=== PATIENT | female | born 1980 | race African-American/Black ===

== ENCOUNTER 2020-09-19 06:03 | Inpatient (IN) ==
[2020-09-13 11:58] LABS: Bilirubin,Urine Negative (Negative); Blood, Urine Negative (Negative); Glucose,Urine (UA) Negative (Negative); Ketones,Urine Negative (Negative); Nitrite,Urine Negative (Negative); Protein,Urine Negative; Squamous Epithelial Cell,Urine Occasional /HPF (0-10); Urine Appearance CLEAR (Clear); Urine Color Yellow (Yellow); Urine Specific Gravity 1.021 (1.001-1.035); Urine Urobilinogen < 2.0 EU/DL (0.2-1.0)
[2020-09-13 11:59] LABS: Basophils # 0.1 10*3/uL (0.0-0.2); Basophils % 1.2 % (0.0-0.8); Eosinophils # 0.2 10*3/uL (0.0-0.87); Eosinophils % 2.6 % (0.00-10.9); Hematocrit 29.5 VOL% (35.7-47.0); Hemoglobin 8.9 GM/DL (12.0-16.0); Immature Granulocytes % 0.5 %; Immature Granulocytes Absolute 0.03 #; Lymphocytes # 2.3 10*3/uL (1.4-4.0); Lymphocytes % 34.2 % (21.3-54.2); Mean Corpuscular HGB Conc 30.2 GM/DL (32-36); Mean Corpuscular Volume 73.6 FL (87-102); Mean Platelet Volume 10.6 FL (9.6-12.0); Monocytes % 5.8 % (1.7-12.7); Neutrophils % 55.7 % (38.7-73.9); Platelet Count 407 T/CUMM (130-400); Red Blood Count 4.01 MC/CUMM (3.8-5.5); Red Cell Distribution Width 18.3 % (9.3-17.3); White Blood Count 6.6 T/CUMM (4-12)
[2020-09-13 12:07] LABS: PT Patient Result 10.3 SECS (9.8-11.9); Partial Thromboplastin Time 25.2 SECS (23.9-33.8)
[2020-09-13 12:25] LABS: Calcium 9.1 MG/DL (8.5-10.1); Osmolality,Calculated 280.3 MOS/KG (273-304)
[2020-09-19] MEDS ORDERED: INDIGO CARMINE 5 ML AMP ONE (06:19)
[2020-09-19] MEDS ORDERED: FAMOTIDINE 20 MG TABLET PO ONE (06:20)
[2020-09-19] MEDS ORDERED: DIAZEPAM 5 MG TABLET PO ONE (06:20)
[2020-09-19] MEDS ORDERED: BUPIVACAINE MPF 0.5% /EPI 30 ML VIAL ONE (06:24)
[2020-09-19] MEDS ORDERED: DEXAMETHASONE 4 MG/1 ML VIAL ONE (06:24)
[2020-09-19] MEDS ORDERED: LACTATED RINGERS 1,000 ML IV SCH ×2 (06:30→09:30)
[2020-09-19] MEDS ORDERED: ceFAZolin 1,000 MG in SYRINGE 1 EACH IV ONE (06:30)
[2020-09-19] MEDS ORDERED: BENZOCAINE/MENTHOL LOZENGE 18/BOX PO PRN (09:02)
[2020-09-19] MEDS ORDERED: MAGNESIUM HYDROXIDE SUSP 30 ML UDCUP PO PRN (09:02)
[2020-09-19] MEDS ORDERED: IBUPROFEN 800 MG TABLET PO PRN (09:02)
[2020-09-19] MEDS ORDERED: ONDANSETRON 4 MG/2 ML VIAL IV PRN ×2 (09:02→09:27)
[2020-09-19] MEDS ORDERED: ACETAMINOPHEN 325 MG TABLET PO PRN (09:02)
[2020-09-19] MEDS ORDERED: BISACODYL 10 MG SUPP RECTAL PRN (09:02)
[2020-09-19] MEDS ORDERED: LIDOCAINE 2% 5 ML VIAL ONE (09:16)
[2020-09-19] MEDS ORDERED: fentaNYL 100 MCG/2 ML VIAL ONE (09:16)
[2020-09-19] MEDS ORDERED: MIDAZOLAM 2 MG/2 ML VIAL ONE (09:16)
[2020-09-19] MEDS ORDERED: propofoL 200 MG/20 ML VIAL IV ONE (09:16)
[2020-09-19] MEDS ORDERED: ROCURONIUM 100 MG/10 ML VIAL IV ONE (09:17)
[2020-09-19] MEDS ORDERED: GLYCOPYRROLATE 0.4 MG/2 ML VIAL ONE (09:17)
[2020-09-19] MEDS ORDERED: ONDANSETRON 4 MG/2 ML VIAL ONE (09:17)
[2020-09-19] MEDS ORDERED: NEOSTIGMINE 10 MG/10 ML VIAL ONE (09:17)
[2020-09-19] MEDS ORDERED: ePHEDrine 50 MG/ML VIAL ONE (09:17)
[2020-09-19] MEDS ORDERED: LACTATED RINGERS 1,000 ML IV ONE (09:17)
[2020-09-19] MEDS ORDERED: HYDROmorphone 2 MG/1 ML VIAL IV PRN ×2 (09:27→17:45)
[2020-09-19 09:33] LABS: Bacteria,Urine Occasional /HPF (Few); Bilirubin,Urine Negative (Negative); Blood, Urine Negative (Negative); Glucose,Urine (UA) Negative (Negative); Ketones,Urine Negative (Negative); Mucus,Urine Occasional /LPF (Occasional); Nitrite,Urine Negative (Negative); Protein,Urine Negative; RBC,Urine <1 /HPF (0-4); Squamous Epithelial Cell,Urine Occasional /HPF (0-10); Urine Appearance CLEAR (Clear); Urine Color Yellow (Yellow); Urine Specific Gravity 1.018 (1.001-1.035); Urine Urobilinogen < 2.0 EU/DL (0.2-1.0); WBC,Urine <1 /HPF (0-6)
[2020-09-19] MEDS ORDERED: MEPERIDINE 25 MG/1 ML VIAL IV PRN (09:40)
[2020-09-19] MEDS ORDERED: MEPERIDINE 25 MG/1 ML VIAL ONE (09:41)
[2020-09-19] MEDS ORDERED: INFLUENZA VIRUS VACCINE 0.5 ML SYRINGE IM ONE (10:30)
[2020-09-19] MEDS: KETOROLAC 30 MG/1 ML VIAL IV PRN ×3 (10:55→23:25)
[2020-09-19] MEDS ORDERED: HYDROmorphone 2 MG/1 ML VIAL IV ONE (12:08)
[2020-09-19] MEDS: ceFAZolin 1,000 MG in SYRINGE 1 EACH IV SCH ×2 (15:06→23:29)
[2020-09-20] MEDS: oxyCODONE/ACETAMINOPHEN 5-325 MG TABLET PO PRN ×2 (05:25→11:16)
[2020-09-20] MEDS: KETOROLAC 30 MG/1 ML VIAL IV PRN (05:26)
[2020-09-20 06:20] LABS: Basophils % 0.2 % (0.0-0.8); Eosinophils % 0.1 % (0.00-10.9); Hemoglobin 7.9 GM/DL (12.0-16.0); Immature Granulocytes % 0.5 %; Immature Granulocytes Absolute 0.06 #; Lymphocytes # 1.9 10*3/uL (1.4-4.0); Lymphocytes % 14.9 % (21.3-54.2); Mean Corpuscular HGB Conc 31.6 GM/DL (32-36); Mean Corpuscular Volume 71.4 FL (87-102); Monocytes % 5.3 % (1.7-12.7); Platelet Count 314 T/CUMM (130-400); Red Cell Distribution Width 17.6 % (9.3-17.3); White Blood Count 12.6 T/CUMM (4-12)
[2020-09-20 06:43] LABS: Hypochromasia 1+; Lymphocytes 14 % (20-55); Microcytosis 1+; Platelet Estimate Adequate; Segmented Neutrophils 84 % (50-85); Total Cells Counted 100
[2020-09-20] MEDS: METOCLOPRAMIDE 10 MG TABLET PO SCH ×2 (07:59→16:48)
[2020-09-20] MEDS: DOCUSATE SODIUM 100 MG CAPSULE PO PRN ×2 (08:00→20:19)
[2020-09-20] MEDS ORDERED: SIMETHICONE CHEW 80 MG TABLET PO PRN (18:51)
[2020-09-21] MEDS: METOCLOPRAMIDE 10 MG TABLET PO SCH (04:36)
[2020-09-21 07:59] VITALS: BP 140/83
[2020-09-21] MEDS ORDERED: IRON (CARBONYL)/VIT C/B12/FA TABLET PO SCH (09:00)
[2020-09-21] MEDS: DOCUSATE SODIUM 100 MG CAPSULE PO PRN (09:09)
== END 2020-09-21 13:15 | disposition home or self-care (01) | DRG 743 ==
LOC: N.SDSINP 06:03 → N.OR 06:03 → N.SDSINP 06:05 → EDSTATUS 07:30 → N.OB 09:02
PROVIDERS: ADMIT Specialist; ATTEND Specialist